=== PATIENT | male | born 1995 | race Caucasian/White ===

== ENCOUNTER 2019-06-18 20:15 | Emergency (ER) | payer SELFPAY ==
[~2019-06-18] VITALS: Ht 188 cm; Wt 88.0 kg
[2019-06-18 20:33] VITALS: BP 132/75
[2019-06-18 21:32] LABS: BILIRUBIN,URINE NEGATIVE (NEG); CLARITY,URINE CLEAR; COLOR,URINE YELLOW; NITRITE,URINE NEGATIVE (NEG); PH,URINE 6.5; PROTEIN,URINE NEGATIVE (NEG-TRACE); UROBILINOGEN,URINE 0.2 mg/dL (0.2 mg/dL)
--- NOTE | 2019-06-18 21:36 | PHYS DOC ---
Past Medical History Past Medical History: No Pertinent History Past Surgical History: No Surgical History Alcohol Use: Occasionally Adult General Chief Complaint Chief Complaint: GROIN PAIN [facility] HPI Patient is a 24 year old male who presents with testicular pain has been ongoing for 3 days and getting worse. Patient had this pain intermittently for year. The patient states he lifts a lot of boxes at work. Reports his pain is 1 out of 10 in severity and sharp. States he is not concerned for STDs. Denies any other complaints. Complete ROS were reviewed and found to be within normal limits, except as doc umented in the HPI Physical Exam Physical Exam Constitutional: Well developed, well nourished, no acute distress, non-toxic appearance. [] HENT: Normocephalic, atraumatic, bilateral external ears normal, oropharynx moist, no oral exudates, nose normal. [] Cardiovascular:Heart rate regular rhythm, no murmur [] Lungs & Thorax: Bilateral breath sounds clear to auscultation [] Abdomen: Bowel sounds normal, soft, no tenderness, no masses, no pulsatile masses. [] Skin: Warm, dry, no erythema, no rash. [] Neurologic: Alert and oriented X 3, normal motor function, normal sensory fun ction, no focal deficits noted. [] Psychologic: Affect normal, judgement normal, mood normal. [] Testicular: Skin and scrotum externally are within normal limits. Tender to palpation. Current Patient Data Vital Signs Vital Signs Date Time Temp Pulse Resp B/P (MAP) Pulse Ox O2 Delivery O2 Flow Rate FiO2 06/18/19 20:33 98.0 73 16 132/75 (94) 100 98.0 Lab Values Laboratory Tests Test 06/18/19 20:41 Urine Collection Type Unknown Urine Color Yellow Urine Clarity Clear Urine pH 6.5 Urine Specific [place] 1.020 Urine Protein Negative mg/dL (NEG-TRACE) Urine Glucose (UA) Negative mg/dL (NEG) Urine Ketones (Stick) Negative mg/dL (NEG) Urine Blood Negative (NEG) Urine Nitrite Negative (NEG) Urine Bilirubin Negative (NEG) Urine Urobilinogen Dipstick 0.2 mg/dL (0.2 mg/dL) Urine Leukocyte Esterase Negative (NEG) Urine RBC 0 /HPF (0-2) Urine WBC 0 /HPF (0-4) Urine Squamous Epithelial Cells Occ /LPF Urine Bacteria 0 /HPF (0-FEW) EKG EKG [] Radiology/Procedures Radiology/Procedures [facility] [address] [place] [address] IMAGING REPORT Signed PATIENT: JOE WOLFE ACCOUNT: [id number] : 1995 LOCATION: ER AGE: 24 SEX: M EXAM STATUS: REG ER ORD. PHYSICIAN: ANALI MONTALVO APRN REASON: testicular pain PROCEDURE: TESTICULAR/SCROTUM Ultrasound testicular and scrotal contents HISTORY: Testicular pain Sonographic examination of scrotal contents and testes was performed and multiple static images were obtained The testes appear normal with homogeneous echotexture and normal blood flow. The right testis measures 4.5 x 3.4 x 2.0 cm. The left testis measures 4.5 x 3.0 x 2.3 cm. There is a 5 mm x 7 mm x 5 mm hypoechoic lesion in the right epididymis. There is a varicocele left. Superior to the left tissue there is soft tissue prominence that increases with Valsalva. IMPRESSION: 1. Small hypoechoic lesion in the right epididymis is nonspecific but could be mild epididymitis. 2. Varicocele on the left likely incidental. 3. Prominence of soft tissue above the left epididymis that increases with Valsalva suggests a small hernia. 4. Normal testes with normal testicular blood flow. Electronically signed by: Danyell Guzman III, MD (06/18/2019 10:01 PM) [id number] DICTATED and SIGNED BY: DANYELL GUZMAN III, MD DATE: 06/18/192200 Course & Med Decision Making Course & Med Decision Making Pertinent Labs and Imaging studies reviewed. (See chart for details) Will get ultrasound and UA. UA is unremarkable. Ultrasound shows: IMPRESSION: 1. Small hypoechoic lesion in the right epididymis is nonspecific but could be mild epididymitis. 2. Varicocele on the left likely incidental. 3. Prominence of soft tissue above the left epididymis that increases with Valsalva suggests a small hernia. 4. Normal testes with normal testicular blood flow. Electronically signed by: Danyell Guzman III, MD (06/18/2019 10:01 PM) [place] [id number] Dragon Disclaimer Dragon Disclaimer This electronic medical record was generated, in whole or in part, using a voice recognition dictation system. Departure Departure Impression: Primary Impression: Hernia Disposition: 01 HOME, SELF-CARE Condition: STABLE Referrals: NO PCP (PCP) EZEQUIEL MARIN MD Patient Instructions: Hernia Additional Instructions: Thank you for visiting [facility]. We appreciate you trusting us with your care. If any additional problems come up don't hesitate to return to visit us. Please follow up with your primary care provider so they can plan additional care if needed and know about the problem that you had. If symptoms worsen come back to the Emergency Department. Any concerning symptoms that start such as chest pain, shortness of air, weakness or numbness on one side of the body, running high fevers or any other concerning symptoms return to the ER. Please follow up with Dr. Marin at General Surgery. ANALI MONTALVO APRN Jun 18, 2019 21:36
[2019-06-18 21:37] LABS: SQUAMOUS EPITHELIAL CELL,UR OCC /LPF
[2019-06-18 21:38] LABS: BACTERIA,URINE 0 /HPF (0-FEW); RBC,URINE 0 /HPF (0-2); WBC,URINE 0 /HPF (0-4)
--- NOTE | 2019-06-18 22:04 | RAD ---
Ultrasound testicular and scrotal contents HISTORY: Testicular pain Sonographic examination of scrotal contents and testes was performed and multiple static images were obtained The testes appear normal with homogeneous echotexture and normal blood flow. The right testis measures 4.5 x 3.4 x 2.0 cm. The left testis measures 4.5 x 3.0 x 2.3 cm. There is a 5 mm x 7 mm x 5 mm hypoechoic lesion in the right epididymis. There is a varicocele left. Superior to the left tissue there is soft tissue prominence that increases with Valsalva. IMPRESSION: 1. Small hypoechoic lesion in the right epididymis is nonspecific but could be mild epididymitis. 2. Varicocele on the left likely incidental. 3. Prominence of soft tissue above the left epididymis that increases with Valsalva suggests a small hernia. 4. Normal testes with normal testicular blood flow. Electronically signed by: Ravin Mas III, MD (06/18/2019 10:01 PM) [id number]
== END 2019-06-18 22:37 | disposition home or self-care (01) ==
LOC: ER 20:15
DX: K46.9 Unspecified abdominal hernia without obstruction or gangrene (principal); N50.819 Testicular pain, unspecified
CPT/HCPCS: 76870; 81001; 99285